=== PATIENT | female | born 1990 | race Caucasian/White ===

== ENCOUNTER 2020-12-03 22:51 | Emergency (ER) | payer MEDICAID ==
[~2020-12-03] VITALS: Ht 172.7 cm; Wt 136.1 kg
[2020-12-03 23:02] VITALS: BP 130/74
--- NOTE | 2020-12-03 23:09 | NUR ---
patient given a specimen cup to urinate, patient to lobby
--- NOTE | 2020-12-03 23:43 | NUR ---
PT AMBULATED TO ER BED 09
--- NOTE | 2020-12-03 23:55 | NUR ---
received pt in bed 9 with c/o abdominal pain since last night. Pt states junie has moved from llq to rlq. is awake and alert. skin warm and dry. ambulated to br for ua.
--- NOTE | 2020-12-04 00:17 | NUR ---
PT TAKEN TO CT
[2020-12-04] MEDS ORDERED: KETOROLAC 60 MG/2 ML VIAL IM ONE (01:20)
[2020-12-04 01:38] LABS: APPEARANCE,URINE SL CLOUDY (CLEAR); BILIRUBIN,URINE NEGATIVE (NEGATIVE); BLOOD, URINE 3+ (NEGATIVE); COLOR,URINE YELLOW (YELLOW); LEUKOCYTE ESTERASE ,URINE 1+ (NEGATIVE); NITRITE, URINE POSITIVE (NEGATIVE); PH,URINE 5.5 (5.0-9.0); UGLUCOSE NEGATIVE (NEGATIVE)
[2020-12-04] MEDS ORDERED: CEPH-588 PO (01:46)
[2020-12-04] MEDS ORDERED: IBUP-2213 PO (01:46)
[2020-12-04 01:51] LABS: WBC,URINE TOO MANY TO COUNT /HPF (0-5)
[2020-12-04 02:00] VITALS: BP 124/76
--- NOTE | 2020-12-04 02:00 | NUR ---
Patient discharged with v/s stable. Written and verbal after care instructions given and explained. Patient alert, oriented and verbalized understanding of instructions. Ambulatory with steady gait. All questions addressed prior to discharge. ID band removed. Patient advised to follow up with PMD. Rx of IBUPROFEN, KEFLEX given. Patient educated on indication of medication including possible reaction and side effects. Opportunity to ask questions provided and answered.
== END 2020-12-04 02:00 | disposition home or self-care (01) ==
LOC: MED 22:51
DX: N83.201 Unspecified ovarian cyst, right side (principal); N39.0 Urinary tract infection, site not specified; N94.6 Dysmenorrhea, unspecified
CPT/HCPCS: 74176; 81001; 81025; 87086; 96372; 99284; J1885